=== PATIENT | female | born 1965 | race Two or more races ===

== ENCOUNTER → 2017-12-01 | Outpatient (CLI) | payer MEDICAID ==
[~2017-12-01] MED LIST: GADOBUTROL 10 MMOL/10 ML VIAL ONE
== END | disposition home or self-care (01) ==
LOC: CFH 13:15
PROVIDERS: ATTEND Family Medicine
DX: N64.4 Mastodynia (principal); N64.9 Disorder of breast, unspecified
CPT/HCPCS: A9585; C8908

== ENCOUNTER 2020-08-28 18:00 | Emergency (ER) | payer MEDICAID ==
[~2020-08-28] VITALS: Ht 167.6 cm; Wt 80.6 kg
[2020-08-28] MEDS ORDERED: OXYC10TA6 PO (18:42)
[2020-08-28] MEDS ORDERED: ALPR0.254 PO (18:42)
[2020-08-28] MEDS ORDERED: LORazepam 1MG TABLET ONE (18:47)
[2020-08-28] MEDS ORDERED: LORazepam 1MG TABLET PO ONE (19:00)
--- NOTE | 2020-08-28 19:00 | NUR ---
LATE ENTRY D/T PT CARE: BS REPORT FROM JOJO RN, PT C/O SOB SINCE FEBRUARY, STATES THAT IT CAUSES HER TO "WAKE UP GASPING IN THE NIGHT." PT PLACED ON SPO2/BP/ECG MONITORING UPON THIS RN'S ARRIVAL TO ROOM, PT SATTING WELL, BUT APPEARS ANXIOUS. PT STATES "I KNOW WHAT ANXIETY IS AND THIS ISNT IT, SOMETHINGS WRONG AND ITS TERRIBLE, I AM SCARED TO SLEEP". WCTM. PT MEDICATED PER Nov, RIGHTS REVIEWED
[2020-08-28 19:16] LABS: BASOPHILS % (AUTO) 1 % (0-1); EOSINOPHILS % (AUTO) 2 % (1-7); LYMPHOCYTES % (AUTO) 34 % (22-44); MEAN CORPUSCULAR HEMOGLOBIN 30.6 pg (27.0-34.8); MEAN CORPUSCULAR HGB CONC 34.5 g/dL (32.4-35.8); MEAN PLATELET VOLUME 8.2 fL (7.4-10.4); MONOCYTES % (AUTO) 7 % (2-9); NEUTROPHILS % (AUTO) 56 % (42-75); PLATELET COUNT 245 x10^3/uL (130-400); RED BLOOD COUNT 4.51 x10^6/uL (3.82-5.3); RED CELL DISTRIBUTION WIDTH 12.7 % (9.6-15.2)
[2020-08-28 19:18] LABS: MD NO
[2020-08-28 19:27] LABS: ALANINE AMINOTRANSFERASE 36 U/L (12-78); ALBUMIN 4.2 g/dL (3.4-5.0); ANION GAP 7 mmol/L (5-15); CALCIUM 9.1 mg/dL (8.5-10.1); CHLORIDE 106 mmol/L (98-107); CREATININE 0.74 mg/dL (0.55-1.02)
[2020-08-28 19:32] LABS: ALKALINE PHOSPHATASE 88 U/L (45-117); BILIRUBIN,TOTAL 0.2 mg/dL (0.2-1.0); TOTAL PROTEIN 8.2 g/dL (6.4-8.2); TROPONIN I < 0.015 ng/mL (0.000-0.045)
--- NOTE | 2020-08-28 20:00 | NUR ---
LATE ENTRY D/T PT CARE: PT NAD, SITTING UP IN GURNEY, APPEARS COMFORTABLE AND MORE RELAXED. BED IN [facility], CALL L[facility] ON LAP, WCTM. WAITING FOR ADDITIONAL TEST RESULTS.
[2020-08-28 20:31] VITALS: BP 156/78
--- NOTE | 2020-08-28 21:01 | NUR ---
Patient given discharge instructions and they have confirmed that they understand the instructions. Patient ambulatory with steady gait. NAD, RN AND PT REVIEWED MEDICATIONS, ALL QUESTIONS ANSWERED APPROPRIATELY, PT DENIES ADDITIONAL QUESTIONS OR NEEDS AT THIS TIME. NO PERSONAL BELONGINGS LEFT IN ROOM AT THE TIME OF DC.
== END 2020-08-28 21:02 | disposition home or self-care (01) ==
LOC: ED 19:56
DX: R06.00 Dyspnea, unspecified (principal); Z20.828 Contact with and (suspected) exposure to other viral communicable diseases; B34.9 Viral infection, unspecified; M79.10 Myalgia, unspecified site; R07.9 Chest pain, unspecified; R94.31 Abnormal electrocardiogram [ECG] [EKG]; I10 Essential (primary) hypertension
CPT/HCPCS: 71045; 80053; 84484; 85025; 85379; 86308; 87635; 93005; 99285

== ENCOUNTER 2021-01-02 23:09 | Emergency (ER) | payer MEDICAID ==
[~2021-01-02] VITALS: Ht 170.2 cm; Wt 79.7 kg
[~2021-01-02 23:09] MED LIST changes: +ALPR0.254 PO; -GADOBUTROL 10 MMOL/10 ML VIAL ONE; +OXYC10TA6 PO
[2021-01-02 23:11] VITALS: BP 145/76
[2021-01-03] MEDS ORDERED: maalox/diphenh/lido/sucralfate 5 ML PO ONE
--- NOTE | 2021-01-03 00:35 | NUR ---
Patient given discharge instructions and they have confirmed that they understand the instructions. Patient ambulatory with steady gait.
[2021-01-03] MEDS ORDERED: ONDA4TAB7 PO ×2 (09:27)
[2021-01-03] MEDS ORDERED: HYDR50TA99 PO (09:27)
== END 2021-01-03 00:36 | disposition home or self-care (01) ==
LOC: ED 23:39
DX: K13.79 Other lesions of oral mucosa (principal); K12.0 Recurrent oral aphthae
CPT/HCPCS: 99282

== ENCOUNTER 2021-01-03 08:50 | Emergency (ER) | payer MEDICAID ==
[~2021-01-03] VITALS: Ht 170.2 cm; Wt 78.9 kg
[2021-01-03] MEDS ORDERED: HYDR50TA99 PO (09:27)
[2021-01-03] MEDS ORDERED: ONDA4TAB7 PO ×2 (09:27)
--- NOTE | 2021-01-03 09:27 | NUR ---
ASSUMED CARE OF PT IN 31. PT IN NO ACUTE DISTRESS. 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 UNABLE TO FILL PRESCRIPTION D/T INSURANCE REASON. AWAITING MD.
[2021-01-03] MEDS ORDERED: DIPHENHYDRAMINE 50 MG/ML, 1ML ONE (09:50)
[2021-01-03] MEDS ORDERED: maalox/diphenh/lido/sucralfate 5 ML PO PRN (10:00)
[2021-01-03] MEDS ORDERED: DIPHENHYDRAMINE 50 MG/ML, 1ML IM ONE (10:00)
--- NOTE | 2021-01-03 10:22 | NUR ---
MAGIC MOUTHWASH SWISH AND SPIT GIVEN TO PATIENT AND PAIENT INSTRUCTED ON USE.
--- NOTE | 2021-01-03 10:47 | NUR ---
DR. TRAORE AT BEDSIDE TO RECHECK PATIENT.
[2021-01-03 10:48] VITALS: BP 120/80
== END 2021-01-03 11:35 | disposition home or self-care (01) ==
LOC: ED 11:00
DX: K12.0 Recurrent oral aphthae (principal)
CPT/HCPCS: 96372; 99283; J1200; 99282; 99406